=== PATIENT | female | born 1985 | race Two or more races ===

== ENCOUNTER 2018-05-23 20:34 | Emergency (ER) | payer BC ==
[~2018-05-23] VITALS: Ht 162.6 cm; Wt 54.4 kg
[2018-05-23 21:10] LABS: BASOPHILS % (AUTO) 0.4 % (0.0-2.0); EOSINOPHILS # (AUTO) 0.1 K/uL (0.0-0.7); HEMATOCRIT 42.3 % (31.2-41.9); HEMOGLOBIN 13.9 g/dL (10.9-14.3); LYMPHOCYTES # (AUTO) 2.6 K/uL (20.0-40.0); LYMPHOCYTES % (AUTO) 36.9 % (20.5-51.5); MEAN CORPUSCULAR HEMOGLOBIN 29.8 uug (24.7-32.8); MEAN CORPUSCULAR HGB CONC 33 g/dL (32.3-35.6); MEAN CORPUSCULAR VOLUME 90.5 fL (75.5-95.3); MONOCYTES # (AUTO) 0.6 K/uL (2.0-10.0); NEUTROPHILS # (AUTO) 3.8 K/uL (1.8-8.9); NEUTROPHILS % (AUTO) 53.7 % (38.5-71.5); PLATELET COUNT (AUTO) 305 K/uL (179-408); RED BLOOD CELL COUNT(AUTO) 4.67 MIL/uL (3.63-4.92)
--- NOTE | 2018-05-23 21:10 | NUR ---
Pt walks into ER with c/o vaginal bleeding "spotting" 1 hr user acceptance tester. Pt denies any abd pain or any other s/s. States she is approx 5 weeks & thinks she might have a miscarriage. Appears in no apparent distress.
--- NOTE | 2018-05-23 21:13 | NUR ---
Labs drawn, urine sample collected sent to lab. Pending ultrasound.
--- NOTE | 2018-05-23 21:24 | NUR ---
Per Matthias Browne, Amber, patient is not a candidate of RhoGAM. ERMD notified.
--- NOTE | 2018-05-23 22:49 | NUR ---
Female telephonic nurse accompanied female patient for Dr. Lima during pelvic exam.
--- NOTE | 2018-05-23 23:21 | NUR ---
Patient discharged to home in stable conditon. Written and verbal after care instructions given. Patient verbalizes understanding of instructions. Pt left ER in stable gait. All belongings w pt. VSS. NAD noted. Pt understands d/c instrutions to see [employer] [facility] in 2 days
[2018-05-23 23:25] VITALS: BP 122/72
== END 2018-05-23 23:28 | disposition home or self-care (01) ==
LOC: ER 20:37
DX: O20.8 Other hemorrhage in early pregnancy (principal); Z3A.01 Less than 8 weeks gestation of pregnancy
CPT/HCPCS: 36415; 76856; 85025; 86850; 86900; 86901; A4663

== ENCOUNTER 2018-05-30 05:19 | Emergency (ER) | payer BC ==
[~2018-05-30] VITALS: Ht 162.6 cm; Wt 54.4 kg
[2018-05-30] MEDS ORDERED: PNV11TAB PO (05:33)
--- NOTE | 2018-05-30 05:35 | NUR ---
at bedside for MSE
--- NOTE | 2018-05-30 05:40 | NUR ---
Pt. ambulated into ED w/ c/o vaginal bleeding and bilat. lower abd. pain x 1 week, pt. is is w/ an estimated gestational age of 6-7 weeks, A/Ox4, speaks in clear and complete sentences, RR even and unlabored, VSS, bed in low position,
--- NOTE | 2018-05-30 05:47 | NUR ---
Phleb. tech. at bedside for blood draw,
[2018-05-30 06:02] LABS: BASOPHILS % (AUTO) 0.4 % (0.0-2.0); EOSINOPHILS # (AUTO) 0.1 K/uL (0.0-0.7); EOSINOPHILS % (AUTO) 0.6 % (0.0-7.0); HEMATOCRIT 37.5 % (31.2-41.9); LYMPHOCYTES # (AUTO) 1.8 K/uL (20.0-40.0); LYMPHOCYTES % (AUTO) 19.6 % (20.5-51.5); MEAN CORPUSCULAR HEMOGLOBIN 30.8 uug (24.7-32.8); MEAN CORPUSCULAR HGB CONC 35 g/dL (32.3-35.6); MONOCYTES # (AUTO) 0.8 K/uL (2.0-10.0); MONOCYTES % (AUTO) 8.9 % (0.0-11.0); NEUTROPHILS # (AUTO) 6.6 K/uL (1.8-8.9); NEUTROPHILS % (AUTO) 70.5 % (38.5-71.5); PLATELET COUNT (AUTO) 314 K/uL (179-408); RED BLOOD CELL COUNT(AUTO) 4.21 MIL/uL (3.63-4.92); WHITE BLOOD COUNT (AUTO) 9.3 K/uL (3.8-11.8)
[2018-05-30 06:18] LABS: CREATININE 0.6 mg/dL (0.6-1.3); POTASSIUM 4.2 mmol/L (3.5-5.1)
--- NOTE | 2018-05-30 06:21 | NUR ---
Pt. up to use restroom - urine specimen collected and sent to lab, no blood in urine visualized,
--- NOTE | 2018-05-30 06:21 | NUR ---
MD at bedside w/ female witness for pelvic exam
--- NOTE | 2018-05-30 06:30 | NUR ---
US tech. at bedside for pelvic US
[2018-05-30 06:33] LABS: *BILIRUBIN,URIN NEGATIVE (NEGATIVE); *BLOOD, URINE 2+ (NEGATIVE); *CLARITY,URINE CLEAR (CLEAR); *COLOR,URINE YELLOW (YELLOW); *KETONES,URINE NEGATIVE (NEGATIVE); *UROBILINOGEN,URINE 0.2 E.U./dl (NORMAL); LEUKOCYTE ESTERASE ,URINE NEGATIVE (NEGATIVE); NITRITE, URINE NEGATIVE (NEGATIVE); PH,URINE 7.5 (5.0-8.0); UGLUCOSE NEGATIVE (NEGATIVE)
[2018-05-30 06:44] LABS: SQUAMOUS EPITHELIAL CELL,UR FEW /HPF (NONE SEEN)
[2018-05-30 06:45] LABS: BACTERIA,URINE NONE SEEN /HPF (NONE SEEN); MUCUS,URINE FEW /LPF (0-FEW); RBC,URINE 20-50 /HPF (0-3); WBC,URINE 0-3 /HPF (0-3)
--- NOTE | 2018-05-30 07:08 | NUR ---
Report given to shannon CONTRERAS
--- NOTE | 2018-05-30 07:43 | NUR ---
ER registration staff Nicole is calling patient's HMO insurance re: possible admission or transfer to another facility for D&C procedure
[2018-05-30] MEDS ORDERED: ONDANSETRON 4 MG/2 ML VIAL ONE (07:55)
[2018-05-30] MEDS ORDERED: MORPHINE SULFATE 4 MG/1 ML DISP.SYRIN ONE (07:55)
[2018-05-30] MEDS ORDERED: ONDANSETRON 4 MG/2 ML VIAL IV ONE (08:00)
[2018-05-30] MEDS ORDERED: MORPHINE SULFATE 4 MG/1 ML DISP.SYRIN IV ONE (08:00)
[2018-05-30 08:11] LABS: BASOPHILS % (AUTO) 0.1 % (0.0-2.0); EOSINOPHILS % (AUTO) 0.3 % (0.0-7.0); HEMATOCRIT 39.8 % (31.2-41.9); HEMOGLOBIN 13.7 g/dL (10.9-14.3); LYMPHOCYTES # (AUTO) 2.2 K/uL (20.0-40.0); LYMPHOCYTES % (AUTO) 14.7 % (20.5-51.5); MEAN CORPUSCULAR HEMOGLOBIN 30.4 uug (24.7-32.8); MEAN CORPUSCULAR HGB CONC 34 g/dL (32.3-35.6); MEAN CORPUSCULAR VOLUME 88.6 fL (75.5-95.3); MONOCYTES # (AUTO) 1.1 K/uL (2.0-10.0); MONOCYTES % (AUTO) 7.4 % (0.0-11.0); NEUTROPHILS # (AUTO) 11.5 K/uL (1.8-8.9); NEUTROPHILS % (AUTO) 77.5 % (38.5-71.5); PLATELET COUNT (AUTO) 315 K/uL (179-408); WHITE BLOOD COUNT (AUTO) 14.9 K/uL (3.8-11.8)
--- NOTE | 2018-05-30 08:29 | NUR ---
Patient is resting comfortably on gurney (high bush's position) with significant other at bedside.
--- NOTE | 2018-05-30 09:31 | NUR ---
Patient went to bathroom 2x with brisk steady gait, increasing vaginal bleeding expressed, MD is aware.
--- NOTE | 2018-05-30 09:34 | NUR ---
Ambulance authorization#[id number] (given by patient's HMO insurance) per ER registration staff Nicole, pending transfer information still (no assigned room or nurse)@this time. Patient notified.
--- NOTE | 2018-05-30 10:25 | NUR ---
Patient will be tranferred to outside facility: [facility] accepting Physician: Simi direct location: room 317-A accepting nurse: [facility] ambulance: Bekah TOLEDO & the expected arrival is [id number]
== END 2018-05-30 12:14 | disposition short-term general hospital (02) ==
LOC: ER 05:21
DX: O20.0 Threatened abortion (principal); Z90.49 Acquired absence of other specified parts of digestive tract; Z79.899 Other long term (current) drug therapy; Z3A.01 Less than 8 weeks gestation of pregnancy
CPT/HCPCS: 36415; 76856; 80048; 81001; 84702; 85025 ×2; 85730; 86850; 86900; 86901; 96374; 96375; 99285; J2270; J2405; A4663